=== PATIENT | male | born 1965 | race African-American/Black ===

== ENCOUNTER 2018-07-17 05:56 | Day surgery (SDC) | payer OTHER ==
[2018-07-17 06:36] VITALS: PULSE 80; TEMP 99; BMI 44.0
[2018-07-17 06:50] VITALS: BP 150/80
[2018-07-17] MEDS ORDERED: TRANEXAMIC ACID 1000 MG/10 ML VIAL ONE (07:12)
[2018-07-17] MEDS ORDERED: ONDANSETRON 4 MG/2 ML VIAL ONE (07:12)
[2018-07-17] MEDS ORDERED: VANCOMYCIN 1,000 MG VIAL (RESTRICTED TO ID ONLY) ONE (07:12)
[2018-07-17] MEDS ORDERED: ceFAZolin SODIUM 1 GM VIAL ONE (07:12)
[2018-07-17] MEDS ORDERED: PROPOFOL 20 ML ONE (07:12)
[2018-07-17] MEDS ORDERED: DEXAMETHASONE SOD PHOSPHATE 4 MG/1 ML VIAL ONE (07:12)
[2018-07-17] MEDS ORDERED: SUCCINYLCHOLINE CHLORIDE 200 MG/10 ML VIAL ONE (07:12)
[2018-07-17] MEDS ORDERED: CELECOXIB 200 MG CAPSULE PO ONE (07:21)
[2018-07-17] MEDS ORDERED: WATER IVPB ONE (07:21)
[2018-07-17] MEDS ORDERED: TRANEXAMIC ACID 1000 MG/10 ML VIAL IVPUSH ONE (07:21)
[2018-07-17] MEDS ORDERED: DEXTROSE 5% IVPB ONE (07:21)
[2018-07-17] MEDS ORDERED: CEFAZOLIN 2 GM in DEXTROSE 5%-WATER - 50 ML IVPB ONE (07:21)
[2018-07-17] MEDS ORDERED: VANCOMYCIN IVPB ONE (07:21)
[2018-07-17] MEDS ORDERED: MIDAZOLAM HCL 2 MG/2 ML SINGLE DOSE VIAL ONE ×3 (07:34→09:04)
[2018-07-17] MEDS ORDERED: DEXAMETHASONE SOD PHOSPHATE/PF 10 MG/ML SDV ONE ×2 (07:34→08:17)
[2018-07-17] MEDS ORDERED: BUPIVACAINE HCL/PF (5 MG/ML) 30 ML VIAL IJ ONE (07:34)
[2018-07-17] MEDS ORDERED: HEPARIN NA (PORCINE) 5,000 UNITS/ML 1ML VIAL ONE (07:50)
[2018-07-17] MEDS ORDERED: BENZOIN TINCTURE SWABSTICK TP ONE (07:51)
[2018-07-17] MEDS ORDERED: EPINEPHrine/PF 1 MG/1 ML (1:1,000) AMPULE ONE ×2 (08:18→09:03)
[2018-07-17] MEDS ORDERED: ROPIVACAINE HCL 0.5% 30ML VIAL ONE (08:19)
[2018-07-17] MEDS ORDERED: KETOROLAC TROMETHAMINE 60 MG/2 ML VIAL ONE (09:03)
[2018-07-17] MEDS ORDERED: morphine CARPU-JECT 10 MG/1 ML DISP.SYRIN ONE (09:03)
[2018-07-17] MEDS ORDERED: BUPIVACAINE HCL/PF 2.5 MG/ML - 30 ML VIAL IJ ONE (09:04)
[2018-07-17] MEDS ORDERED: SODIUM CHLORIDE 0.9% P/F 10 ML VIAL IJ ONE (09:04)
[2018-07-17] MEDS ORDERED: KETOROLAC TROMETHAMINE 30 MG/1 ML VIAL ONE (11:09)
[2018-07-17] MEDS ORDERED: KETOROLAC TROMETHAMINE 30 MG/1 ML VIAL IVPUSH ONE (13:07)
== END 2018-07-17 12:00 | disposition home or self-care (01) ==
LOC: FM/S 05:56 → FASUSAT 05:56 → UNDOADMIN 05:56 → EDSTATUS 10:00 → UNDODISIN 12:00 → FASUSAT 12:00
PROVIDERS: ATTEND Orthopaedic Surgery Orthopaedic Surgery of the Spine
PROC: 0SRB0JZ Replacement of Left Hip Joint with Synthetic Substitute, Open Approach (ICD-10-PCS; principal; 2018-07-17)
PROC: 0SPB0JZ Removal of Synthetic Substitute from Left Hip Joint, Open Approach (ICD-10-PCS; 2018-07-17)
DX: T84.091D Other mechanical complication of internal left hip prosthesis, subsequent encounter (principal); Y79.2 Prosthetic and other implants, materials and accessory orthopedic devices associated with adverse incidents; Z53.09 Procedure and treatment not carried out because of other contraindication
CPT/HCPCS: J1644

== ENCOUNTER 2018-12-18 07:17 | Inpatient (IN) | payer OTHER ==
[2018-12-04 13:46] VITALS: BMI 38.0
[2018-12-18] MEDS ORDERED: VANCOMYCIN 2,000 MG in DEXTROSE 5%-WATER - 500 ML IVPB ONE (08:00)
[2018-12-18] MEDS ORDERED: HEPARIN NA (PORCINE) 5,000 UNITS/ML 1ML VIAL ONE (09:57)
[2018-12-18] MEDS ORDERED: CEFAZOLIN 2 GM in DEXTROSE 5%-WATER - 50 ML IVPB ONE (10:00)
[2018-12-18] MEDS ORDERED: TRANEXAMIC ACID 1000 MG/10 ML VIAL IVPUSH ONE (10:00)
[2018-12-18] MEDS ORDERED: EPINEPHrine/PF 1 MG/1 ML (1:1,000) AMPULE ONE (10:08)
[2018-12-18] MEDS ORDERED: MIDAZOLAM HCL 2 MG/2 ML SINGLE DOSE VIAL ONE (10:09)
[2018-12-18] MEDS ORDERED: DEXMEDETOMIDINE HCL 200 MCG/2 ML IVPB ONE (10:15)
[2018-12-18] MEDS ORDERED: VANCOMYCIN 1,000 MG VIAL (RESTRICTED TO ID ONLY) ONE (10:17)
[2018-12-18] MEDS ORDERED: BUPIVACAINE HCL/PF 0.5% (5MG/ML) 10 ML VIAL ONE (10:31)
[2018-12-18] MEDS ORDERED: PROPOFOL 20 ML ONE ×5 (10:32→11:23)
[2018-12-18] MEDS ORDERED: ceFAZolin SODIUM 1 GM VIAL ONE (10:33)
[2018-12-18] MEDS ORDERED: DEXAMETHASONE SOD PHOSPHATE 4 MG/1 ML VIAL ONE (10:33)
[2018-12-18] MEDS ORDERED: TRANEXAMIC ACID 1000 MG/10 ML VIAL ONE (10:33)
[2018-12-18] MEDS ORDERED: ONDANSETRON 4 MG/2 ML VIAL ONE ×3 (10:33→16:47)
[2018-12-18] MEDS ORDERED: SODIUM CHLORIDE 0.9% P/F 10 ML VIAL IJ ONE (10:33)
[2018-12-18] MEDS ORDERED: BENZOIN/ALOE VERA/STORAX/TOLU 58 ML BOTTLE ONE (10:58)
[2018-12-18] MEDS ORDERED: LIDOCAINE HCL/PF 2% SDV 5ML VIAL ONE (11:19)
[2018-12-18] MEDS ORDERED: KETAMINE HCL 200 MG/20 ML VIAL ONE (11:33)
[2018-12-18] MEDS ORDERED: MAGNESIUM SULF 50% (8.12 MEQ/2 ML-1 GM VIAL) ONE (11:34)
[2018-12-18] MEDS ORDERED: ROCURONIUM BROMIDE 50 MG/5 ML VIAL ONE ×3 (11:50→14:15)
[2018-12-18] MEDS ORDERED: NEOSTIGMINE METHYLSULFATE 0.5 MG/ML - 10 ML MDV ONE (15:04)
[2018-12-18] MEDS ORDERED: GLYCOPYRROLATE 0.2 MG/1 ML VIAL ONE (15:04)
[2018-12-18] MEDS ORDERED: KETOROLAC TROMETHAMINE 30 MG/1 ML VIAL ONE (15:14)
[2018-12-18] MEDS ORDERED: DESFLURANE GAS 240 ML BOTTLE IH ONE (15:40)
--- NOTE | 2018-12-18 15:58 | SURG ---
Surgery Bdc Manager Note Bdc Manager: Andrew Marks PA-C Date of Service: 12/18/18 Diagnosis: Failure of left hip hardware Procedure: Revision of left hip hardware, extended trochanteric osteotomy I was present for the entirety of the operative procedure. For further detail, please refer to operative report.
[2018-12-18] MEDS ORDERED: LACTATED RINGERS SOLUTION 1,000 ML IV SCH (16:00)
[2018-12-18] MEDS ORDERED: MAG HYDROX/AL HYDROX/SIMETH 30 ML UNIT-DOSE CUP PO PRN (16:00)
[2018-12-18] MEDS ORDERED: ONDANSETRON 4 MG/2 ML VIAL IVPUSH PRN ×2 (16:00→16:26)
[2018-12-18] MEDS ORDERED: MAGNESIUM HYDROX 2400MG/30ML ORAL SUSPENSION 30 ML CUP PO PRN (16:00)
[2018-12-18] MEDS ORDERED: HYDROmorphone HCL CARPU-JECT 1 MG/1 ML DISP.SYRIN IVPUSH PRN (16:26)
[2018-12-18] MEDS ORDERED: PROMETHAZINE HCL 25 MG/1 ML VIAL IVPUSH PRN (16:26)
[2018-12-18] MEDS ORDERED: oxyCODONE HCL 5 MG TABLET PO PRN (16:27)
[2018-12-18] MEDS ORDERED: ACETAMINOPHEN 325 MG TABLET (FP) PO SCH (16:30)
[2018-12-18] MEDS ORDERED: ACETAMINOPHEN 325 MG TABLET (FP) PO ONE (16:45)
[2018-12-18] MEDS ORDERED: ACETAMINOPHEN 325 MG TABLET (FP) ONE (16:46)
[2018-12-18] MEDS ORDERED: ONDANSETRON 4 MG/2 ML VIAL IVPUSH ONE (16:47)
[2018-12-18 17:06] LABS: MCH 27.9 pg (25.7-33.7); MCHC 33.3 g/dl (32.0-35.9); MEAN CELL VOLUME 83.7 fl (80-96); MEAN PLT VOLUME 8.9 fl (7.5-11.1); PLATELET COUNT 176 K/MM3 (134-434); RDW 13.3 % (11.9-15.9)
[2018-12-18] MEDS ORDERED: PROMETHAZINE HCL 25 MG/1 ML VIAL ONE (17:06)
[2018-12-18] MEDS ORDERED: PROMETHAZINE HCL 25 MG/1 ML VIAL IVPUSH ONE (17:10)
[2018-12-18] MEDS ORDERED: HYDROmorphone HCL 0.5 MG/0.5 ML SYRINGE ONE (17:13)
[2018-12-18] MEDS ORDERED: HYDROmorphone HCL CARPU-JECT 2 MG/1 ML DISP.SYRIN IVPUSH ONE (17:15)
[2018-12-18] MEDS: ACETAMINOPHEN 325 MG TABLET (FP) PO SCH ×2 (17:39→22:43)
[2018-12-18] MEDS: CEFAZOLIN 2 GM/D5W 2 GM/50 ML ML IVPB SCH (17:55)
[2018-12-18] MEDS: oxyCODONE HCL 5 MG TABLET PO PRN ×2 (18:00→22:44)
--- NOTE | 2018-12-18 18:19 | OP ---
Operative Note - Note: Operative Date: 12/18/18 Pre-Operative Diagnosis: Left hip implant failure Operation: Revision L THR Extended Trochanteric Osteotomy Findings: Proximilization of femoral stem with intercalary bone between the stem and spa which had from the SROM stem Implants: 32mm ceramic head and 60mm ployethylene liner Surgeon: Jd Pollard Information Services Assistant: Andrew Marks Anesthesia: General Estimated Blood Loss (mls): 1,500 Drains & Tubes with Location: 10/22 hemovac Blood Volume Replaced (mls): 500 Operative Report Dictated: Yes
[2018-12-18] MEDS ORDERED: HYDROmorphone HCl 2 MG/ML VIAL IVPUSH ONE (18:49)
[2018-12-18] MEDS ORDERED: HYDROmorphone HCL CARPU-JECT 2 MG/1 ML DISP.SYRIN IVPB PRN (19:00)
--- NOTE | 2018-12-18 19:13 | PN ---
Progress Note, Physician Chief Complaint: Pt with right hip implant failure, now s/p Revision Left THR extended trochanteric osteotomy. History of Present Illness: 53 year old M with h/o bilateral slipped capital femoral epyphysis daignosed at age 10, s/p bilateral hip replacements presents to [facility] for Revision L THR Extended Trochanteric Osteotomy. No immediate complications reported. Pt's sole complaint is post-op pain. - Current Medication List Current Medications: Active Medications Acetaminophen (Tylenol -) 650 mg PO Q6H [facility] Stop: 12/21/18 16:59 Last Admin: 12/18/18 17:39 Dose: Not Given Al Hydroxide/Mg Hydroxide (Mylanta Oral Suspension -) 30 ml PO Q4H PRN PRN Reason: DYSPEPSIA Ascorbic Acid (Vitamin C -) 500 mg PO BID [facility] Aspirin (Asa -) 325 mg PO BID [facility] Carvedilol (Coreg -) 25 mg PO DAILY [facility] Fentanyl (Sublimaze Injection -) 75 mcg IVPUSH [id number] PRN PRN Reason: PAIN-PACU ORDER X 4 DOSES ONLY Gabapentin (Neurontin -) 300 mg PO BID [facility] Stop: 12/21/18 21:59 Hydralazine HCl (Apresoline -) 50 mg PO DAILY [facility] Hydrochlorothiazide (Hctz -) 25 mg PO DAILY [facility] Hydromorphone HCl (Dilaudid Injection -) 0.5 mg IVPUSH [id number] PRN PRN Reason: PAIN-PACU ORDER X 4 DOSES ONLY Cefazolin Sodium/Dextrose (Ancef 2 Gm Premixed Ivpb -) 2 gm in 50 mls @ 200 mls /hr IVPB Q8H-IV [facility] Stop: 12/19/18 02:14 Last Admin: 12/18/18 17:55 Dose: 200 mls/hr Lactated Ringer's (Lactated Ringers Solution) 1,000 mls @ 125 mls/hr IV ASDIR [facility] Stop: 12/19/18 06:00 Last Admin: 12/18/18 17:38 Dose: Not Given Magnesium Hydroxide (Milk Of Magnesia -) 30 ml PO PRN PRN PRN Reason: CONSTIPATION Multivitamins/Minerals/Vitamin C (Tab-A-Vit -) 1 tab PO DAILY [facility] Nifedipine (Procardia Xl -) 90 mg PO DAILY [facility] Ondansetron HCl (Zofran Injection) 4 mg IVPUSH Q6H PRN PRN Reason: NAUSEA AND/OR VOMITING Oxycodone HCl (Roxicodone -) 5 mg PO Q3H PRN PRN Reason: PAIN LEVEL 1-5 Oxycodone HCl (Roxicodone -) 10 mg PO Q3H PRN PRN Reason: PAIN LEVEL 6-10 Last Admin: 12/18/18 18:00 Dose: 10 mg Oxycodone HCl (Oxycontin -) 10 mg PO BID [facility] Stop: 12/21/18 16:27 Pantoprazole Sodium (Protonix -) 40 mg PO DAILY [facility] Promethazine HCl (Phenergan Injection -) 12.5 mg IVPUSH Q6H PRN PRN Reason: NAUSEA-FOR RESCUE AFTER 15 MIN Senna/Docusate Sodium (Pericolace -) 1 tablet PO BID [facility] - Objective Vital Signs: Vital Signs Temperature 98.1 F 12/18/18 18:33 Pulse Rate 91 H 12/18/18 18:33 Respiratory Rate 18 12/18/18 18:33 Blood Pressure 112/60 12/18/18 18:33 O2 Sat by Pulse Oximetry (%) 97 12/18/18 18:33 Constitutional: Yes: Well Nourished, Mild Distress Eyes: Yes: Conjunctiva Clear, PERRL HENT: Yes: Atraumatic, Normocephalic Neck: Yes: Supple, Trachea Midline Cardiovascular: Yes: Regular Rate and Rhythm Respiratory: Yes: Regular, CTA Bilaterally Gastrointestinal: Yes: Normal Bowel Sounds, Soft ...Rectal Exam: Yes: Deferred Genitourinary: Yes: WNL Breast(s): Yes: Gynecomastia Musculoskeletal: Yes: Joint Stiffness Extremities: Yes: WNL Edema: No Peripheral Pulses WNL: Yes Peripheral Pulses: Left Radial: 2+, Right Radial: 2+, Left Doralis Pedis: 2+, Right Dorsalis Pedis: 2+ Integumentary: Yes: WNL Wound/Incision: Yes: Clean/Dry, Dressing Dry and Intact (JIMBO drain in situ) Neurological: Yes: Alert, Oriented ...Motor Strength: WNL Psychiatric: Yes: Alert, Oriented Labs: CBC, BMP 12/18/18 16:40 - ....Imaging X-ray: Report Reviewed (Left hip X-ray 03-06-2019 2 View of the left hip reveal a left hip replacement with soft tissue air and nils. ther eis wiring around the proximal left femur. These are typical post-op findings.) Problem List - Problems (1) Status post total replacement of left hip Assessment/Plan: neurontin 300mg BID IV hydration overnight advance diet as tolerated Tylenol PRN fever dilaudid IV PRN severe pain Oxycodone 5mg Q3 mild pain Oxycodone 10mg Q3 moderate pain ASA 325mg BID (bleeding precautions) Ancef 2gm x 2 doses Code(s): Z96.642 - PRESENCE OF LEFT ARTIFICIAL HIP JOINT (2) HTN (hypertension) Assessment/Plan: continue HCTZ 25mg daily, hydral 50mg daily and procardia XL 90mg daily coreg 25mg daily cardiac diet Code(s): I10 - ESSENTIAL (PRIMARY) HYPERTENSION (3) Prophylactic measure Assessment/Plan: fall precautions PT when stable GI PPX: Protonix Bowel regimen: senna/colace continue MVI daily PRN MOM for constipation Code(s): Z29.9 - ENCOUNTER FOR PROPHYLACTIC MEASURES, UNSPECIFIED Impression/Plan Impression/Plan: DISPO: Full code Visit type - Emergency Visit Emergency Visit: No - New Patient This patient is new to me today: Yes Date on this admission: 12/18/18 - Critical Care Critical Care patient: No - Discharge Referral Referred to [facility] Med P.C.: No
[2018-12-18] MEDS: GABAPENTIN 300 MG CAPSULE (FP) PO SCH (21:09)
[2018-12-18] MEDS: SENNOSIDES/DOCUSATE COMBO (SENNA PLUS) TABLET (UD) PO SCH (21:09)
[2018-12-18] MEDS: ASCORBIC ACID 500 MG TABLET (FP) PO SCH (21:10)
[2018-12-18] MEDS: ASPIRIN 325 MG TABLET PO SCH (21:10)
[2018-12-18] MEDS ORDERED: oxyCODONE HCL 10 MG SUSTAINED ACTING TABLET PO SCH (22:00)
[2018-12-19] MEDS: CEFAZOLIN 2 GM/D5W 2 GM/50 ML ML IVPB SCH (01:44)
[2018-12-19] MEDS: KETOROLAC TROMETHAMINE 30 MG/1 ML VIAL IVPUSH SCH ×3 (02:34→16:22)
[2018-12-19] MEDS: oxyCODONE HCL 5 MG TABLET PO PRN ×4 (05:01→19:55)
[2018-12-19] MEDS: ACETAMINOPHEN 325 MG TABLET (FP) PO SCH ×4 (05:02→22:56)
--- NOTE | 2018-12-19 07:39 | PN ---
Physical Exam: SUBJECTIVE: Patient seen and examined at bedside. Appears comfortable, but pain is 9/10. Became dizzy and lightheaded this morning when he stood up. Tolerating PO. OBJECTIVE: Vital Signs Period Temp Pulse Resp BP Sys/Sepulveda Pulse Ox Last 24 Hr 98.1 F-99.4 F 84-107 16-21 112-152/60-90 97-100 GENERAL: The patient is awake, alert, and fully oriented, in no acute distress. LUNGS: Breath sounds equal, clear to auscultation bilaterally, no wheezes, no crackles, no accessory muscle use. HEART: Regular rate and rhythm, S1, S2 without murmur, rub or gallop. ABDOMEN: Soft, nontender, nondistended, normoactive bowel sounds, no guarding, no rebound, no hepatosplenomegaly, no masses. EXTREMITIES: 2+ pulses, warm, well-perfused, no edema. NEUROLOGICAL: Cranial nerves II through XII grossly intact. Normal speech, gait not observed. PSYCH: Normal mood, normal affect. SKIN: Warm, dry, normal turgor, no rashes or lesions noted Laboratory Results - last 24 hr 12/18/18 12/18/18 12/18/18 13:44 13:49 16:40 WBC 18.0 H RBC 4.30 Hgb 12.0 Hct 36.0 MCV 83.7 MCH 27.9 MCHC 33.3 RDW 13.3 Plt Count 176 MPV 8.9 Blood Type O POSITIVE O POSITIVE Antibody Screen Negative Active Medications Generic Name Dose Route Start Last Admin Trade Name Freq PRN Reason Stop Dose Admin Acetaminophen 650 mg 12/18/18 17:00 12/19/18 05:02 Tylenol - PO 12/21/18 16:59 650 mg Q6H ALEX Administration Al Hydroxide/Mg Hydroxide 30 ml 12/18/18 16:00 Mylanta Oral Suspension - PO Q4H PRN DYSPEPSIA Ascorbic Acid 500 mg 12/18/18 22:00 12/18/18 21:10 Vitamin C - PO 500 mg BID ALEX Administration Aspirin 325 mg 12/18/18 22:00 12/18/18 21:10 Asa - PO 325 mg BID A[facility] Administration Carvedilol 25 mg 12/19/18 10:00 Coreg - PO DAILY [facility] Fentanyl 75 mcg 12/18/18 16:25 Sublimaze Injection - IVPUSH [id number] PRN PAIN-PACU ORDER X 4 DOSES ONLY Gabapentin 300 mg 12/18/18 22:00 12/18/18 21:09 Neurontin - PO 12/21/18 21:59 300 mg BID ALEX Administration Hydralazine HCl 50 mg 12/19/18 10:00 Apresoline - PO DAILY [facility] Hydrochlorothiazide 25 mg 12/19/18 10:00 Hctz - PO DAILY [facility] Hydromorphone HCl 0.5 mg 12/18/18 16:26 Dilaudid Injection - IVPUSH [id number] PRN PAIN-PACU ORDER X 4 DOSES ONLY Hydromorphone HCl 2 mg 12/18/18 19:00 12/19/18 01:30 Dilaudid Injection - IVPB 2 mg Q6H PRN Administration PAIN LEVEL 6-10 Ketorolac Tromethamine 30 mg 12/19/18 03:00 12/19/18 02:34 Toradol Injection - IVPUSH 12/19/18 21:01 30 mg Q6H-IV [facility] Administration Ketorolac Tromethamine 30 mg 12/20/18 03:00 Toradol Injection - IVPUSH 12/25/18 02:59 Q6H-IV [facility] Magnesium Hydroxide 30 ml 12/18/18 16:00 Milk Of Magnesia - PO PRN PRN CONSTIPATION Multivitamins/Minerals/Vitamin C 1 tab 12/19/18 10:00 Tab-A-Vit - PO DAILY [facility] Nifedipine 90 mg 12/19/18 10:00 Procardia Xl - PO DAILY [facility] Ondansetron HCl 4 mg 12/18/18 16:26 Zofran Injection IVPUSH Q6H PRN NAUSEA AND/OR VOMITING Oxycodone HCl 5 mg 12/18/18 16:27 Roxicodone - PO Q3H PRN PAIN LEVEL 1-5 Oxycodone HCl 10 mg 12/18/18 16:27 12/19/18 05:01 Roxicodone - PO 10 mg Q3H PRN Administration PAIN LEVEL 6-10 Oxycodone HCl 10 mg 12/18/18 22:00 12/18/18 21:10 Oxycontin - PO 12/21/18 16:27 10 mg BID [facility] Administration Pantoprazole Sodium 40 mg 12/19/18 10:00 Protonix - PO DAILY [facility] Promethazine HCl 12.5 mg 12/18/18 16:26 Phenergan Injection - IVPUSH Q6H PRN NAUSEA-FOR RESCUE AFTER 15 MIN Senna/Docusate Sodium 1 tablet 12/18/18 22:00 12/18/18 21:09 Pericolace - PO 1 tablet BID [facility] Administration ASSESSMENT/PLAN 53 year-old male with a PMH significant for HTN, s/p revision left total hip replacement. s/p revision left total hip replacement --POD #1 --perioperative antibiotics complete --pain management per surgery --ASA 325mg BID --protonix --bowel regimen --incentive spirometry --Hemovac drain, monitor output Hypertension --presently orthostatic hypotension, tachy to 127 on standing --give NS x 1L bolus --repeat orthostatics --continue carvedilol, nifedipine, hydralazine; hold HCTZ Elevated creatinine --pre-op BUN/Cr 14/0.8; today 25/1.4 --likely due to low volume state --hold HCTZ --IV fluids FEN Fluids: NS@100mL/hr Electrolytes: replete as indicated Nutrition: regular diet DVT prophylaxis: OOB, ambulation, SCDs, TEDs, ASA 325mg BID Physical therapy Dispo: continues to require inpatient care. Full code. Visit type - Emergency Visit Emergency Visit: No - New Patient This patient is new to me today: Yes Date on this admission: 12/19/18 - Critical Care Critical Care patient: No
--- NOTE | 2018-12-19 07:46 | PN ---
Progress Note (short form) - Note Progress Note: POD 1, s/p Revision L THR Extended Trochanteric Osteotomy Pt seen and examined this morning. Reports continued pain with current pain regimen. Stood with assistance from RN this morning, however became dizzy and lightheaded, pt was placed back in bed. Tolerating PO. Denies cp/sob, n/v/d. Vital Signs Temp 98.8 F 12/19/18 06:41 Pulse 100 H 12/19/18 06:41 Resp 18 12/19/18 06:41 BP 152/72 12/19/18 06:41 Pulse Ox 98 12/19/18 06:41 Intake & Output 12/18/18 12/18/18 12/19/18 11:59 23:59 11:59 Intake Total 2800 1350 1650 Output Total 2290 650 Balance 2800 -940 1000 Weight 288 lb Intake: IV 2800 200 1250 Lactated Ringers Solution 1250 1,000 ml @ 125 mls/hr IV ASDIR MENDOZA Rx#: [id number] IVPB 50 Oral 400 350 Blood Product 750 Output: Drainage 90 50 Left Hip 90 50 Urine 200 600 Pineda 0 600 Estimated Blood Loss 1999 Other: Voiding Method Indwelling Catheter Indwelling Catheter Bowel Movement No Height 6 ft 1 in Body Mass Index (BMI) 38.0 Weight Measurement Method Standing Scale Gen: awake, alert, nad, sitting in bed Resp: unlabored on RA Hip: dressing intact with minimal serosanguinous drainage, HV in place with minimal serosanguinous drainage in reservoir LE: 5/5 b/l df/pf, silt, palpable dp/pt b/l A/P: 53 y/o M w/ PMHX OA, htn, morbid pobesity, now POD 1, s/p Revision L THR Extended Trochanteric Osteotomy. Afebrile, mildly tachycardic to low 100s (?pain), BP systolic in 1teens Labs pending HV output 50ml serosanguinous drainage overnight -F/U AM labs -Pain control: Oxycontin 10mg increased to TID, continue Oxycodone 5/10mg q3hr prn, Tylenol 650mg q6hrs mendoza, Gabapentin 300mg bid, Dilaudid 2mg q6h BTP -DVT prophylaxis with b/l scds, ASA 325bid -Incentive Spirometry. -PT, OOB. -WBAT LLE -Posterior L hip precautions. -f/u drain output. -f/u am labs. -f/u post-op TOV. -Hip abduction pillow -Care per medical hospitalist team
[2018-12-19] MEDS: oxyCODONE HCL 10 MG SUSTAINED ACTING TABLET PO SCH ×3 (08:13→21:30)
[2018-12-19 08:40] LABS: HEMATOCRIT 30.1 % (35.4-49); HEMOGLOBIN 9.8 GM/dl (11.7-16.9); MCH 27.4 pg (25.7-33.7); MCHC 32.5 g/dl (32.0-35.9); MEAN CELL VOLUME 84.4 fl (80-96); MEAN PLT VOLUME 9.3 fl (7.5-11.1); PLATELET COUNT 154 K/MM3 (134-434); RBC 3.57 M/mm3 (4.00-5.60); RDW 13.5 % (11.9-15.9); WHITE BLOOD COUNT 17.4 K/mm3 (4.0-10.8)
[2018-12-19 08:42] LABS: ALBUMIN 3.1 g/dl (3.4-5.0); ALK PHOS 22 U/L (45-117); ANION GAP 10 MMOL/L (8-16); BILIRUBIN,TOTAL 0.9 mg/dl (0.2-1); BLOOD UREA NITROGEN 25 mg/dl (7-18); CALCIUM 8.1 mg/dl (8.5-10); CHLORIDE 96 mmol/L (98-107); CO2 27 mmol/L (21-32); CREATININE 1.4 mg/dl (0.55-1.3); GLUCOSE,RANDOM 140 mg/dl (74-106); PHOSPHOROUS 4.1 mg/dl (2.5-4.9); POTASSIUM 3.6 mmol/L (3.5-5.1); SGOT/AST 23 U/L (15-37); SGPT/ALT 16 U/L (13-61); SODIUM 133 mmol/L (136-145); TOT PROT 5.7 g/dl (6.4-8.2)
[2018-12-19] MEDS ORDERED: HYDROCHLOROTHIAZIDE 25 MG TABLET (FP) PO SCH (10:00)
[2018-12-19] MEDS: ASPIRIN 325 MG TABLET PO SCH ×2 (10:22→21:29)
[2018-12-19] MEDS: CARVEDILOL 25 MG TABLET (FP) PO SCH (10:22)
[2018-12-19] MEDS: hydrALAZINE HCL 50 MG TABLET (FP) PO SCH (10:22)
[2018-12-19] MEDS: PANTOPRAZOLE 40 MG TABLET (FP) PO SCH (10:23)
[2018-12-19] MEDS: GABAPENTIN 300 MG CAPSULE (FP) PO SCH ×2 (10:23→21:30)
[2018-12-19] MEDS: SENNOSIDES/DOCUSATE COMBO (SENNA PLUS) TABLET (UD) PO SCH ×2 (10:23→21:30)
[2018-12-19] MEDS: NIFEdipine E.R. 90 MG TABLET (FP) PO SCH (10:23)
[2018-12-19] MEDS: MULTIVITAMINS (DAILY MVI) TABLET (FP) PO SCH (10:23)
[2018-12-19] MEDS: ASCORBIC ACID 500 MG TABLET (FP) PO SCH ×2 (10:24→21:30)
--- NOTE | 2018-12-19 11:09 | OP ---
DATE OF OPERATION: 12/18/2018 SURGEON: Jd Pollard M.D. STEEL [employer]AR OPERATOR: Tony Johnson, ([facility] PREOPERATIVE DIAGNOSIS: Failed implant left femur, left total hip arthroplasty. POSTOPERATIVE DIAGNOSIS: Failed implant left femur, left total hip arthroplasty. OPERATION PERFORMED: 1. Left revision total hip arthroplasty. 2. Extended trochanteric osteotomy. 3. Complex wound closure, 60 cm. OVERALL COMMENT: Extremely difficult operation. ANESTHESIA: General anesthesia. ANTIBIOTICS GIVEN: 3 g Kefzol, 1 g vancomycin preoperative. Patient's weight is 290 pounds, BMI is 39. DESCRIPTION OF PROCEDURE: With the patient in supine position, left lower extremity was prepped, draped in the routine manner with Betadine scrub solution, wiped off with alcohol, DuraPrep applied. The original wound was excised, completing a complete scar excision that extended from the line going vertically down from the anterior superior iliac spine right down to the distal 1/3 of the femur. The fascial planes were identified and opened appropriately. Charnley retractors were placed in the subfascial plane. The exposure here was difficult, because of thickness and massive structures which we encountered. An extended trochanteric osteotomy measuring about an inch and a half below the distal to the trochanteric ridge was performed; with great difficulty, the trochanter in 1 large piece was dissected off the proximal aspect of the femoral bone bed and lifted up out of harm's way. Two Charnley pins driven into the ileum to hold the hip abductor mechanism out of harm's way. Working around the stem of the femur, which is now visibly apparent, it was noted that the spur had remained in standard composition but the entire femoral component had proximalized itself, massive thick bone had intervened between the actual calcar and the actual base of the left femoral component, giving a thick bony block as if bone had grown in between the 2 components, and the femoral component migrated proximally, yet an attempt to mobilize the femoral stent was impossible, this was solidly seated . The spur was loosened completely to migrate itself up to meet back in position the femoral neck, this measured approximately 1 cm. Once again the spur was spun out of harm's way and with extensive attempts at trying to deliver the femoral component out, the only way this would have been possible is splitting the femur, and I elected not to do this, as this was slowly inserted, we are reseating a brand new implant which would not have changed any biomechanical advantage at all. The acetabulum was exposed with anterior posterior inferior retractors as well as with peripheral junctional bed was freed around the cup. The polyethylene was removed. The cup was assessed itself, found to be completely and solidly inserted and uncomplicated. At that point, I elected to leave that well enough alone and exchange the cup no great achievement. Exposure itself proved to be extremely difficult. A new polyethylene liner was inserted, this measured 60 mm size diameter cup, and 30-mm articulation. I trialed the components again with trial 32 mm head fastened to the trunnion of the Eschelon stem. This was found to be very acceptable with completely within normal range of movement. At that point, we elected to provide the appropriate definitive prosthesis, which was then inserted exactly as measured above. The extended trochanteric osteotomy was then positioned back in place, and a block of bone as an allograft bone was placed between the calcar and the actual spur to support the spur proximally. The cabling of the extended trochanteric osteotomies was with 5 cables including capturing the block of bone proximally. All fixed solidly into position, no complications. A complete extensive debridement of soft tissue was then performed, hemostasis was achieved as best we could, and Cell Saver blood was utilized and we gave back approximately 600 mL of Cell Saver blood. Blood loss was about 1500 mL. The wound closure was a complex wound closure as follows: Deep muscle 1 Vicryl, fascia 1 Vicryl, subcutaneous 1 and 2-0 Vicryl in 2 layers, skin nils. Drainage one-eighth inch x1. Overall comment: Extremely difficult operation not only physically and technically difficult to perform because of this man's massive girth and musculature, but also more in terms of the challenging and unusual findings intraoperative as above, and the decision making in order to provide him a hip with as best function as possible. MD JULIO CESAR Shoemaker/[id number]
[2018-12-19] MEDS ORDERED: SODIUM CHLORIDE 1,000 ML IV STA (11:26)
[2018-12-19 16:35] LABS: HEMATOCRIT 25.9 % (35.4-49); HEMOGLOBIN 8.5 GM/dl (11.7-16.9); MCH 27.4 pg (25.7-33.7); MCHC 32.7 g/dl (32.0-35.9); MEAN CELL VOLUME 83.8 fl (80-96); MEAN PLT VOLUME 9.3 fl (7.5-11.1); PLATELET COUNT 143 K/MM3 (134-434); RBC 3.09 M/mm3 (4.00-5.60); RDW 13.2 % (11.9-15.9); WHITE BLOOD COUNT 15.3 K/mm3 (4.0-10.8)
[2018-12-20] MEDS: oxyCODONE HCL 5 MG TABLET PO PRN ×4 (00:15→11:20)
[2018-12-20] MEDS ORDERED: KETOROLAC TROMETHAMINE 30 MG/1 ML VIAL IVPUSH SCH (03:00)
[2018-12-20] MEDS: ACETAMINOPHEN 325 MG TABLET (FP) PO SCH ×2 (06:35→11:19)
[2018-12-20] MEDS: oxyCODONE HCL 10 MG SUSTAINED ACTING TABLET PO SCH (06:36)
[2018-12-20 06:48] VITALS: BP 138/59; PULSE 96; TEMP 99
[2018-12-20 07:45] LABS: BASO % 0.5 % (0-2.0); EOS % 0.2 % (0-4.5); HEMATOCRIT 27.1 % (35.4-49); LYMPH % 27.6 % (8-40); MCH 27.8 pg (25.7-33.7); MCHC 33.3 g/dl (32.0-35.9); MEAN CELL VOLUME 83.5 fl (80-96); MEAN PLT VOLUME 9.1 fl (7.5-11.1); MONO % 9.7 % (3.8-10.2); PLATELET COUNT 128 K/MM3 (134-434); RBC 3.25 M/mm3 (4.00-5.60); RDW 13.3 % (11.9-15.9); WHITE BLOOD COUNT 13.3 K/mm3 (4.0-10.8)
[2018-12-20 07:51] LABS: ANION GAP 7 MMOL/L (8-16); BLOOD UREA NITROGEN 14 mg/dl (7-18); CALCIUM 8.1 mg/dl (8.5-10); CHLORIDE 98 mmol/L (98-107); CO2 30 mmol/L (21-32); CREATININE 0.8 mg/dl (0.55-1.3); GLUCOSE,RANDOM 120 mg/dl (74-106); MAGNESIUM 2.2 mg/dL (1.8-2.4); POTASSIUM 3.1 mmol/L (3.5-5.1); SODIUM 135 mmol/L (136-145)
[2018-12-20] MEDS ORDERED: POTASSIUM CHLORIDE TABS 20 MEQ TABLET.ER (FP) PO SCH (08:15)
--- NOTE | 2018-12-20 08:38 | DS ---
Physical Exam: SUBJECTIVE: Patient seen and examined. POD #2 s/p Revision L THR Extended Trochanteric Osteotomy. Sitting in chair at bedside. C/o Incisional tenderness. Adequate pain control with meds ordered. He states although he has pain he is able to differentiate it from the pain he was having prior too surgery. Describes pain prior too surgery as "deep, near the bone" (anterolateral thigh) . S/p surgery and feels like it has subsided tremendously. He continues to get oob and ambulate the hallways with walker assist. Per notes, he received 2u PRBC last night secondary to drop in H/H causing him to become symptomatic. S/p PRBC felt better. H/H stable at this time. Denies n/v/f/c, CP, palpitations, SOB or CHRISTINE. OBJECTIVE: Last Vital Signs Temp Pulse Resp BP Pulse Ox 99.0 F 96 H 18 138/59 L 97 03/08/19 06:47 12/20/18 06:47 12/20/18 08:27 12/20/18 06:47 12/20/18 08:27 PE Gen: awake, alert, nad, sitting in bed Resp: unlabored on RA Hip: Left hip dressing intact. Drain w/ 80mL recorded LE: Right unremarkable. LLE 5/5 b/l dorsi/plantar flexion, palpable dp/pt b/l. well-perfused LABS CBC, BMP 03/08/19 07:31 03 07:31 HOSPITAL COURSE: Date of Admission:0306/ Date of Discharge: 12/20/18 53 yo male well known to Dr. Jd Pollard as he was s/p Left JULIAN 18 years ago. Admitted to [facility] s/p Revision L THR w/ Extended Trochanteric Osteotomy secondary to hardware failure. Candy-operative IV ABX were administered. DVT prophylaxis was achieved with SCDs and early ambulation. Narcotic and non-narcotic pain management control was achieved with an oral and IV approach. POD #2, the surgical drain was removed fully intact and without incident. The patient ambulated with Physical Therapy and no services were recommended upon discharge. Narcotic scripts and or muscle relaxants were checked with [facility] SERVICE MANAGER prior to escribe. The discharge instructions and an oral pain management plan were reviewed with the patient. All questions answered. Above plan discussed with Dr. Pollard and agreed. Minutes to complete discharge: 35 Visit type - Case Type Case Type: Scheduled
[2018-12-20] MEDS: PANTOPRAZOLE 40 MG TABLET (FP) PO SCH (09:50)
[2018-12-20] MEDS: GABAPENTIN 300 MG CAPSULE (FP) PO SCH (09:50)
[2018-12-20] MEDS: CARVEDILOL 25 MG TABLET (FP) PO SCH (09:50)
[2018-12-20] MEDS: MULTIVITAMINS (DAILY MVI) TABLET (FP) PO SCH (09:50)
[2018-12-20] MEDS: ASCORBIC ACID 500 MG TABLET (FP) PO SCH (09:50)
[2018-12-20] MEDS: ASPIRIN 325 MG TABLET PO SCH (09:50)
[2018-12-20] MEDS: hydrALAZINE HCL 50 MG TABLET (FP) PO SCH (09:50)
[2018-12-20] MEDS: NIFEdipine E.R. 90 MG TABLET (FP) PO SCH (09:50)
[2018-12-20] MEDS: SENNOSIDES/DOCUSATE COMBO (SENNA PLUS) TABLET (UD) PO SCH (09:50)
--- NOTE | 2018-12-20 17:17 | PATH ---
Surgical Pathology Report Patient Name: ROSMERY QUIÑONES Med. Rec. #: [id number] /Age/Gender: 1965 (Age: 53) / M Account: [id number] Location: [facility] MED-SURG Taken: 12/18/2018 Received: 12/18/2018 Reported: 12/20/2018 Physicians: Jd Pollard M.D. Specimen(s) Received HARDWARE LEFT HIP Clinical History Mechanical complication left hip Final Diagnosis HEAD, LEFT, HARDWARE, REVISION OF TOTAL HIP REPLACEMENT: SURGICAL HARDWARE. MACROSCOPIC DIAGNOSIS. Electronically Signed Anabela Monk M.D. Gross Description Received fresh labeled "hardware left hip," is a 2.5 cm in diameter metallic portion of hardware as well as a 5 cm in diameter white plastic portion of hardware, consisting with portions of a hip prosthesis. No soft tissue is present. No sections are submitted, gross only. /12/19/2018 saudi12/19/2018
--- NOTE | 2018-12-23 16:19 | PN ---
Progress Note (short form) - Note Progress Note: 12/19/18 POD#1 Status Revision THR via extended trochanteric osteotomy Vitals stable Feels light headed intermittent Pale Vitals Stable Hyperdynamic circulation as pulse readily palpable through Brachioradialis muscle CVS Stable RESP Clear ABD Soft Neuro Fully intact MSkeletal wound dry Abd pillow in situ Hemovac as per chart ASSESS Doing well PLAN Due to extense of surgery and intraop blood loss combined with clinical sighns of a hyperdynamic circulation and dropping HT for 2 units of blood DVT Prohylaxis Antibiotics for 24 hrs PT Hip precautions Mobilize FWBAT D/C planning
== END 2018-12-20 12:30 | disposition home health service (06) | DRG 467 ==
LOC: FM/S 07:17
PROVIDERS: ADMIT Orthopaedic Surgery Orthopaedic Surgery of the Spine; ATTEND Orthopaedic Surgery Orthopaedic Surgery of the Spine
PROC: 0SRB04Z Replacement of Left Hip Joint with Ceramic on Polyethylene Synthetic Substitute, Open Approach (ICD-10-PCS; 2018-12-18)
PROC: 0SPB0JZ Removal of Synthetic Substitute from Left Hip Joint, Open Approach (ICD-10-PCS; principal; 2018-12-18 12:01)
PROC: 30233N1 Transfusion of Nonautologous Red Blood Cells into Peripheral Vein, Percutaneous Approach (ICD-10-PCS; 2018-12-19)
DX: T84.091A Other mechanical complication of internal left hip prosthesis, initial encounter (principal); D62 Acute posthemorrhagic anemia; Y83.8 Other surgical procedures as the cause of abnormal reaction of the patient, or of later complication, without mention of misadventure at the time of the procedure; I10 Essential (primary) hypertension; Z96.643 Presence of artificial hip joint, bilateral; I95.1 Orthostatic hypotension; E66.01 Morbid (severe) obesity due to excess calories; Z68.38 Body mass index [BMI] 38.0-38.9, adult
CPT/HCPCS: 36415; 36430; 71045-TC-FY; 73502-TC-LT-FY; 80048; 80053; 83735; 84100; 85025; 85027; 86850; 86900; 86901; 86922; 88300-TC; 94760; 97116-GP; 97163-GP; J1644; J7030; P9038; P9058

== ENCOUNTER 2022-09-20 06:07 | Inpatient (IN) | payer OTHER ==
[2022-09-11 16:02] VITALS: BMI 38.2
[2022-09-20] MEDS ORDERED: PROPOFOL 120 ML ONE (07:16)
[2022-09-20] MEDS ORDERED: VANCOMYCIN 1,000 MG VIAL (RESTRICTED TO ID ONLY) ONE (07:20)
[2022-09-20] MEDS ORDERED: TRANEXAMIC ACID 1000 MG/10 ML VIAL ONE (07:20)
[2022-09-20] MEDS ORDERED: ceFAZolin SODIUM 1 GM VIAL ONE ×5 (07:20→14:14)
[2022-09-20] MEDS ORDERED: MIDAZOLAM HCL 2 MG/2 ML SINGLE DOSE VIAL ONE ×3 (07:21→14:06)
[2022-09-20] MEDS ORDERED: KETAMINE HCL 200 MG/20 ML VIAL ONE (07:52)
[2022-09-20] MEDS ORDERED: DEXAMETHASONE SOD PHOSPHATE 10 MG/1 ML VIAL ONE (07:54)
[2022-09-20] MEDS ORDERED: BUPIVACAINE HCL/PF 0.5% (5 MG/ML) 30 ML VIAL IJ ONE (07:54)
[2022-09-20] MEDS ORDERED: BUPIVACAINE HCL/PF 0.5% (5MG/ML) 10 ML VIAL ONE (07:55)
[2022-09-20] MEDS ORDERED: ACETAMINOPHEN INJECTION 100 ML IVPB ONE (07:55)
[2022-09-20] MEDS ORDERED: BUPIVACAINE LIPOSOME/PF (EXPAREL) 266 MG/20 ML VIAL ONE (07:55)
[2022-09-20] MEDS ORDERED: KETOROLAC TROMETHAMINE 30 MG/1 ML VIAL ONE (08:29)
[2022-09-20] MEDS ORDERED: oxyCODONE HCL 5 MG TABLET PO PRN ×2 (08:34)
[2022-09-20] MEDS ORDERED: ONDANSETRON 4 MG/2 ML VIAL IVPUSH PRN ×2 (08:34→14:21)
[2022-09-20] MEDS ORDERED: KETOROLAC TROMETHAMINE 30 MG/1 ML VIAL IM ONE (08:36)
[2022-09-20] MEDS ORDERED: SODIUM CHLORIDE 0.9% P/F 10 ML VIAL IJ ONE (11:30)
[2022-09-20] MEDS ORDERED: THROMBIN (BOVINE) 5,000 UNIT VIAL TP ONE (11:30)
[2022-09-20] MEDS ORDERED: PROPOFOL 20 ML ONE ×4 (11:36→13:08)
[2022-09-20] MEDS ORDERED: PROPOFOL 40 ML ONE (12:03)
[2022-09-20] MEDS ORDERED: PROPOFOL 100 ML ONE (12:48)
[2022-09-20] MEDS ORDERED: SUCCINYLCHOLINE CHLORIDE 200 MG/10 ML SYRINGE ONE (12:57)
[2022-09-20] MEDS ORDERED: GLYCOPYRROLATE 0.2 MG/1 ML VIAL ONE (13:13)
[2022-09-20] MEDS ORDERED: KETAMINE HCL 500 MG/10 ML VIAL ONE (13:46)
[2022-09-20] MEDS ORDERED: HYDROmorphone HCL/PF 1 MG/ML VIAL ONE ×2 (14:16→14:22)
[2022-09-20] MEDS ORDERED: MAGNESIUM HYDROX 2400MG/30ML ORAL SUSPENSION 30 ML CUP PO PRN (14:21)
[2022-09-20] MEDS ORDERED: MAG HYDROX/AL HYDROX/SIMETH 30 ML UNIT-DOSE CUP PO PRN (14:21)
[2022-09-20] MEDS ORDERED: LACTATED RINGERS SOLUTION 1,000 ML IV SCH (14:30)
[2022-09-20] MEDS: HYDROmorphone HCl 2 MG/ML VIAL ONE ×2 (14:44→14:54)
[2022-09-20] MEDS: HYDROmorphone HCl 2 MG/ML VIAL IVPUSH ONE ×3 (15:04→18:26)
[2022-09-20] MEDS: HYDROmorphone *PCA* 10MG/50ML DISP.SYRIN PCA SCH ×2 (15:23→18:27)
[2022-09-20] MEDS: LACTATED RINGERS SOLUTION 1,000 ML IV SCH (17:54)
[2022-09-20] MEDS: CEFAZOLIN 3 GM in DEXTROSE 5%-WATER - 100 ML IVPB SCH ×2 (18:23→21:20)
[2022-09-20] MEDS: SENNOSIDES/DOCUSATE COMBO (SENNA PLUS) TABLET (UD) PO SCH (21:20)
[2022-09-20] MEDS: ASPIRIN COATED 81 MG TABLET.EC PO SCH (21:20)
[2022-09-20] MEDS: CELECOXIB 200 MG CAPSULE PO SCH (21:20)
[2022-09-21] MEDS: CEFAZOLIN 3 GM in DEXTROSE 5%-WATER - 100 ML IVPB SCH (03:25)
[2022-09-21 08:18] LABS: HEMATOCRIT 32.3 % (35.4-49); HEMOGLOBIN 10.4 G/dL (11.7-16.9); MCH 26.5 pg (25.7-33.7); MCHC 32.1 g/dl (32.0-35.9); MEAN CELL VOLUME 82.6 fl (80-96); MEAN PLT VOLUME 8.1 fl (7.5-11.1); RBC 3.91 10^6/uL (4.00-5.60); RDW 15.1 % (11.9-15.9)
[2022-09-21 08:22] LABS: CALCIUM 8.6 mg/dl (8.5-10); CREATININE 0.6 mg/dl (0.55-1.3)
[2022-09-21] MEDS ORDERED: oxyCODONE HCL 5 MG TABLET PO PRN (08:48)
[2022-09-21] MEDS: LACTATED RINGERS SOLUTION 1,000 ML IV SCH (09:43)
[2022-09-21] MEDS: oxyCODONE HCL 5 MG TABLET PO PRN ×4 (09:50→22:18)
[2022-09-21] MEDS: ASPIRIN COATED 81 MG TABLET.EC PO SCH ×2 (09:53→22:20)
[2022-09-21] MEDS: SENNOSIDES/DOCUSATE COMBO (SENNA PLUS) TABLET (UD) PO SCH ×2 (09:53→22:20)
[2022-09-21] MEDS: HYDROCHLOROTHIAZIDE 25 MG TABLET (FP) PO SCH (09:54)
[2022-09-21] MEDS: NIFEdipine E.R. 90 MG TABLET PO SCH (09:55)
[2022-09-21] MEDS: CELECOXIB 200 MG CAPSULE PO SCH ×2 (09:56→22:20)
[2022-09-21] MEDS: PANTOPRAZOLE 40 MG TABLET PO SCH (09:57)
[2022-09-21] MEDS ORDERED: hydrALAZINE HCL 50 MG TABLET (FP) PO ONE (10:00)
[2022-09-21] MEDS ORDERED: hydrALAZINE HCL 50 MG TABLET (FP) PO SCH (10:00)
[2022-09-21] MEDS ORDERED: CARVEDILOL 25 MG TABLET (FP) PO ONE (10:00)
[2022-09-21] MEDS: ACETAMINOPHEN 325 MG TABLET (FP) PO PRN (17:37)
[2022-09-21] MEDS: cloNIDine HCL 0.1 MG TABLET PO SCH (22:19)
[2022-09-21] MEDS: SPIRONOLACTONE 25 MG TABLET PO SCH (22:19)
[2022-09-22] MEDS: oxyCODONE HCL 5 MG TABLET PO PRN ×5 (03:40→22:28)
[2022-09-22 08:30] LABS: HEMATOCRIT 32.4 % (35.4-49); HEMOGLOBIN 10.6 G/dL (11.7-16.9); MCHC 32.8 g/dl (32.0-35.9); MEAN CELL VOLUME 82.3 fl (80-96); MEAN PLT VOLUME 8.2 fl (7.5-11.1); PLATELET COUNT 231.1 10^3/uL (134-434); RBC 3.94 10^6/uL (4.00-5.60); RDW 15.2 % (11.9-15.9); WHITE BLOOD COUNT 13.6 10^3/uL (4.0-10.8)
[2022-09-22] MEDS: LACTATED RINGERS SOLUTION 1,000 ML IV SCH (09:33)
[2022-09-22] MEDS: ASPIRIN COATED 81 MG TABLET.EC PO SCH ×2 (09:37→21:22)
[2022-09-22] MEDS: CELECOXIB 200 MG CAPSULE PO SCH ×2 (09:37→21:22)
[2022-09-22] MEDS: CARVEDILOL 25 MG TABLET (FP) PO SCH ×2 (09:37→21:23)
[2022-09-22] MEDS: VALSARTAN 160 MG TABLET PO SCH (09:38)
[2022-09-22] MEDS: NIFEdipine E.R. 90 MG TABLET PO SCH (09:38)
[2022-09-22] MEDS: PANTOPRAZOLE 40 MG TABLET PO SCH (09:38)
[2022-09-22] MEDS: SPIRONOLACTONE 25 MG TABLET PO SCH ×2 (09:39→21:22)
[2022-09-22] MEDS: cloNIDine HCL 0.1 MG TABLET PO SCH ×2 (09:39→21:23)
[2022-09-22] MEDS: HYDROCHLOROTHIAZIDE 25 MG TABLET (FP) PO SCH (09:39)
[2022-09-22] MEDS: SENNOSIDES/DOCUSATE COMBO (SENNA PLUS) TABLET (UD) PO SCH ×2 (09:41→21:23)
[2022-09-22] MEDS: ACETAMINOPHEN 325 MG TABLET (FP) PO PRN (11:58)
[2022-09-22] MEDS ORDERED: HYDROmorphone HCl 2 MG/ML VIAL IVPB PRN (12:32)
[2022-09-23 02:39] VITALS: RESP 18
[2022-09-23] MEDS: oxyCODONE HCL 5 MG TABLET PO PRN ×2 (04:10→08:11)
[2022-09-23 06:43] VITALS: TEMP 98.7
[2022-09-23] MEDS: ASPIRIN COATED 81 MG TABLET.EC PO SCH (10:00)
[2022-09-23] MEDS: PANTOPRAZOLE 40 MG TABLET PO SCH (10:00)
[2022-09-23] MEDS: NIFEdipine E.R. 90 MG TABLET PO SCH (10:02)
[2022-09-23] MEDS: HYDROCHLOROTHIAZIDE 25 MG TABLET (FP) PO SCH (10:02)
[2022-09-23] MEDS: CELECOXIB 200 MG CAPSULE PO SCH (10:03)
[2022-09-23] MEDS: VALSARTAN 160 MG TABLET PO SCH (10:03)
[2022-09-23] MEDS: SPIRONOLACTONE 25 MG TABLET PO SCH (10:03)
[2022-09-23] MEDS: CARVEDILOL 25 MG TABLET (FP) PO SCH (10:03)
[2022-09-23] MEDS: cloNIDine HCL 0.1 MG TABLET PO SCH (10:03)
[2022-09-23] MEDS: SENNOSIDES/DOCUSATE COMBO (SENNA PLUS) TABLET (UD) PO SCH (10:04)
[2022-09-23 11:31] VITALS: BP 115/54; PULSE 68
== END 2022-09-23 11:31 | disposition home or self-care (01) | DRG 482 ==
LOC: FM/S 06:07 → EDSTATUS 13:00 → FM/S 16:07
PROVIDERS: ADMIT Orthopaedic Surgery Orthopaedic Surgery of the Spine; ATTEND Orthopaedic Surgery Orthopaedic Surgery of the Spine
PROC: 07DR3ZZ Extraction of Iliac Bone Marrow, Percutaneous Approach (ICD-10-PCS; 2022-09-20)
PROC: 0QS704Z Reposition Left Upper Femur with Internal Fixation Device, Open Approach (ICD-10-PCS; principal; 2022-09-20 10:46)
DX: S72.112A Displaced fracture of greater trochanter of left femur, initial encounter for closed fracture (principal); X58.XXXA Exposure to other specified factors, initial encounter; Y93.9 Activity, unspecified; Y92.89 Other specified places as the place of occurrence of the external cause; Y99.9 Unspecified external cause status
CPT/HCPCS: 36415; 73502-TC-LT-FY; 80048; 85027; 86850; 86900; 86901; 88300-TC; 88304-TC; 94760; 97010-GP; 97116-GP; 97163-GP; C1713; C9803-CS; J1100; U0003; U0005

== ENCOUNTER 2023-03-21 06:02 | Inpatient (IN) | payer OTHER ==
[2023-03-19 15:47] VITALS: BMI 35.6
[2023-03-21] MEDS ORDERED: BUPIVACAINE HCL/PF 0.5% (5MG/ML) 10 ML VIAL ONE (07:51)
[2023-03-21] MEDS ORDERED: BUPIVACAINE HCL/PF 2.5 MG/ML - 30 ML VIAL IJ ONE (07:51)
[2023-03-21] MEDS ORDERED: ACETAMINOPHEN INJECTION 100 ML IVPB ONE (07:52)
[2023-03-21] MEDS ORDERED: MIDAZOLAM HCL 2 MG/2 ML SINGLE DOSE VIAL ONE ×6 (07:54→11:01)
[2023-03-21] MEDS ORDERED: oxyCODONE HCL 5 MG TABLET PO PRN (08:35)
[2023-03-21] MEDS ORDERED: ONDANSETRON 4 MG/2 ML VIAL IVPUSH PRN ×2 (08:35→11:37)
[2023-03-21] MEDS ORDERED: PROPOFOL 20 ML ONE ×4 (09:06→10:17)
[2023-03-21] MEDS ORDERED: ceFAZolin SODIUM 1 GM VIAL ONE (09:59)
[2023-03-21] MEDS ORDERED: VANCOMYCIN 1,000 MG VIAL (RESTRICTED TO ID ONLY) ONE (09:59)
[2023-03-21] MEDS ORDERED: TRANEXAMIC ACID 1000 MG/10 ML VIAL ONE (09:59)
[2023-03-21] MEDS ORDERED: HYDROmorphone HCL/PF 1 MG/ML VIAL ONE ×2 (11:31→12:18)
[2023-03-21] MEDS: HYDROmorphone HCl 2 MG/ML VIAL IVPB PRN ×4 (11:33→15:15)
[2023-03-21] MEDS ORDERED: HYDROmorphone HCl 2 MG/ML VIAL IVPUSH PRN (11:34)
[2023-03-21] MEDS ORDERED: MAG HYDROX/AL HYDROX/SIMETH 30 ML UNIT-DOSE CUP PO PRN (11:37)
[2023-03-21] MEDS ORDERED: MAGNESIUM HYDROX 2400MG/30ML ORAL SUSPENSION 30 ML CUP PO PRN (11:37)
[2023-03-21] MEDS ORDERED: LACTATED RINGERS SOLUTION 1,000 ML IV SCH (11:45)
[2023-03-21] MEDS: KETOROLAC TROMETHAMINE 30 MG/1 ML VIAL IVPUSH PRN ×2 (11:47→20:07)
[2023-03-21] MEDS ORDERED: PATIENT'S OWN MEDICATION (NON-FORMULARY) (Oxycodone Hcl [Oxycodone Hcl] 10 MG Tablet) PO SCH (14:00)
[2023-03-21] MEDS: LACTATED RINGERS SOLUTION 1,000 ML IV SCH (14:36)
[2023-03-21] MEDS: CEFAZOLIN 3 GM in DEXTROSE 5%-WATER - 100 ML IVPB SCH ×2 (15:14→21:09)
[2023-03-21 19:29] VITALS: RESP 18
[2023-03-21] MEDS ORDERED: DEXTROSE 5%-WATER - 100 ML IVPB ONE (21:05)
[2023-03-21] MEDS: GABAPENTIN 300 MG CAPSULE PO SCH (21:08)
[2023-03-21] MEDS: CELECOXIB 200 MG CAPSULE PO SCH (21:09)
[2023-03-21] MEDS: SENNOSIDES/DOCUSATE COMBO (SENNA PLUS) TABLET (UD) PO SCH (21:09)
[2023-03-21] MEDS: CARVEDILOL 25 MG TABLET (FP) PO SCH (21:09)
[2023-03-21] MEDS ORDERED: ASPIRIN 325 MG TABLET PO SCH (22:00)
[2023-03-21] MEDS: oxyCODONE HCL 5 MG TABLET PO PRN (23:20)
[2023-03-22] MEDS: CEFAZOLIN 3 GM in DEXTROSE 5%-WATER - 100 ML IVPB SCH (03:07)
[2023-03-22] MEDS: KETOROLAC TROMETHAMINE 30 MG/1 ML VIAL IVPUSH PRN (03:13)
[2023-03-22] MEDS: oxyCODONE HCL 5 MG TABLET PO PRN ×5 (06:05→22:10)
[2023-03-22] MEDS: ACETAMINOPHEN 325 MG TABLET (FP) PO PRN ×3 (06:05→22:10)
[2023-03-22 08:25] LABS: ALBUMIN 2.9 g/dl (3.4-5.0); BILIRUBIN,TOTAL 0.6 mg/dl (0.2-1); CALCIUM 9.1 mg/dl (8.5-10); CREATININE 0.8 mg/dl (0.55-1.3); TOT PROT 6.1 g/dl (6.4-8.2)
[2023-03-22] MEDS: PANTOPRAZOLE 40 MG TABLET PO SCH (09:11)
[2023-03-22] MEDS: SENNOSIDES/DOCUSATE COMBO (SENNA PLUS) TABLET (UD) PO SCH ×2 (09:11→21:12)
[2023-03-22] MEDS: NIFEdipine E.R. 90 MG TABLET PO SCH (09:11)
[2023-03-22] MEDS: GABAPENTIN 300 MG CAPSULE PO SCH ×2 (09:11→21:12)
[2023-03-22] MEDS: CELECOXIB 200 MG CAPSULE PO SCH ×2 (09:12→21:12)
[2023-03-22] MEDS: HYDROCHLOROTHIAZIDE 25 MG TABLET (FP) PO SCH (09:12)
[2023-03-22] MEDS: CARVEDILOL 25 MG TABLET (FP) PO SCH ×2 (09:12→21:12)
[2023-03-22 09:15] LABS: HEMOGLOBIN 9.8 GM/dL (11.7-16.9); MCH 24.8 pg (25.7-33.7); MCHC 31.4 g/dl (32.0-35.9); MEAN CELL VOLUME 78.9 fl (80-96); MEAN PLT VOLUME 8.4 fl (7.5-11.1); PLATELET COUNT 216 10^3/uL (134-434); RBC 3.93 M/mm3 (4.00-5.60); RDW 15.3 % (11.9-15.9); WHITE BLOOD COUNT 8.1 K/mm3 (4.0-10.0)
[2023-03-22] MEDS: LACTATED RINGERS SOLUTION 1,000 ML IV SCH (09:29)
[2023-03-22] MEDS: ASPIRIN COATED 81 MG TABLET.EC PO SCH ×2 (09:29→21:12)
[2023-03-23] MEDS: oxyCODONE HCL 5 MG TABLET PO PRN ×2 (06:05→11:14)
[2023-03-23] MEDS: ACETAMINOPHEN 325 MG TABLET (FP) PO PRN (06:06)
[2023-03-23 08:12] LABS: HEMATOCRIT 30.2 % (35.4-49); HEMOGLOBIN 9.7 G/dL (11.7-16.9); MCH 25.9 pg (25.7-33.7); MCHC 32.2 g/dl (32.0-35.9); MEAN CELL VOLUME 80.6 fl (80-96); PLATELET COUNT 217.8 10^3/uL (134-434); RBC 3.75 10^6/uL (4.00-5.60); RDW 16.8 % (11.9-15.9); WHITE BLOOD COUNT 11.3 10^3/uL (4.0-10.8)
[2023-03-23] MEDS: SENNOSIDES/DOCUSATE COMBO (SENNA PLUS) TABLET (UD) PO SCH (09:10)
[2023-03-23] MEDS: NIFEdipine E.R. 90 MG TABLET PO SCH (09:10)
[2023-03-23] MEDS: PANTOPRAZOLE 40 MG TABLET PO SCH (09:10)
[2023-03-23] MEDS: ASPIRIN COATED 81 MG TABLET.EC PO SCH (09:10)
[2023-03-23] MEDS: LACTATED RINGERS SOLUTION 1,000 ML IV SCH (09:10)
[2023-03-23] MEDS: CELECOXIB 200 MG CAPSULE PO SCH (09:10)
[2023-03-23] MEDS: GABAPENTIN 300 MG CAPSULE PO SCH (09:10)
[2023-03-23] MEDS: CARVEDILOL 25 MG TABLET (FP) PO SCH (09:10)
[2023-03-23] MEDS: HYDROCHLOROTHIAZIDE 25 MG TABLET (FP) PO SCH (09:10)
[2023-03-23 09:57] VITALS: BP 103/63; PULSE 78; TEMP 98.3
== END 2023-03-23 14:13 | disposition home or self-care (01) | DRG 468 ==
LOC: FM/S 06:02 → EDSTATUS 08:00 → FM/S 14:06
PROVIDERS: ADMIT Orthopaedic Surgery Orthopaedic Surgery of the Spine; ATTEND Orthopaedic Surgery Orthopaedic Surgery of the Spine
PROC: 0SPB0JZ Removal of Synthetic Substitute from Left Hip Joint, Open Approach (ICD-10-PCS; 2023-03-21)
PROC: 0SRB0JZ Replacement of Left Hip Joint with Synthetic Substitute, Open Approach (ICD-10-PCS; principal; 2023-03-21 09:44)
DX: T84.091A Other mechanical complication of internal left hip prosthesis, initial encounter (principal); Y83.8 Other surgical procedures as the cause of abnormal reaction of the patient, or of later complication, without mention of misadventure at the time of the procedure; I10 Essential (primary) hypertension; E78.5 Hyperlipidemia, unspecified; M16.12 Unilateral primary osteoarthritis, left hip
CPT/HCPCS: 36415; 73502-TC-LT-FY; 80048; 80053; 85027; 87635; 88305-TC; 88311-TC; 94760; 97010-GP; 97116-GP; 97163-GP

== ENCOUNTER 2025-03-30 09:11 | Day surgery (SDC) | payer OTHER ==
[2025-03-30] MEDS ORDERED: BUPIVACAINE LIPOSOME/PF (EXPAREL) 266 MG/20 ML VIAL ONE (10:56)
[2025-03-30] MEDS ORDERED: MIDAZOLAM HCL 2 MG/2 ML SINGLE DOSE VIAL ONE (10:56)
[2025-03-30] MEDS ORDERED: BUPIVACAINE HCL/PF 0.5% (5MG/ML) 10 ML VIAL ONE (10:56)
[2025-03-30 11:01] VITALS: BMI 40.2
[2025-03-30] MEDS ORDERED: TRANEXAMIC ACID 1000 MG/10 ML VIAL ONE ×2 (12:14→12:16)
[2025-03-30] MEDS ORDERED: VANCOMYCIN 1,000 MG VIAL (RESTRICTED TO ID ONLY) ONE ×2 (12:14→14:14)
[2025-03-30] MEDS ORDERED: ROCURONIUM BROMIDE 50 MG/5 ML SYRINGE ONE ×2 (12:20→12:56)
[2025-03-30] MEDS ORDERED: PROPOFOL 20 ML ONE (13:59)
[2025-03-30] MEDS: TRANEXAMIC ACID 1000 MG/10 ML VIAL IVPB ONE (14:00)
[2025-03-30] MEDS: VANCOMYCIN 1,000 MG VIAL (RESTRICTED TO ID ONLY) IVPB ONE (14:12)
[2025-03-30] MEDS ORDERED: SUGAMMADEX SODIUM 200 MG/2 ML VIAL ONE (14:37)
[2025-03-30] MEDS ORDERED: ONDANSETRON 4 MG/2 ML VIAL IVPUSH PRN ×2 (15:15→16:54)
[2025-03-30] MEDS ORDERED: MAG HYDROX/AL HYDROX/SIMETH 30 ML UNIT-DOSE CUP PO PRN (15:15)
[2025-03-30] MEDS ORDERED: HALOPERIDOL LACTATE 5 MG/ML ONE (15:19)
[2025-03-30] MEDS: HALOPERIDOL LACTATE 5 MG/ML IVPUSH ONE (15:20)
[2025-03-30] MEDS ORDERED: ACETAMINOPHEN INJECTION 100 ML ONE (15:23)
[2025-03-30] MEDS: ACETAMINOPHEN 1000 MG/100 ML BAG IVPB ONE ×3 (15:25→21:21)
[2025-03-30] MEDS ORDERED: HYDROmorphone HCL/PF 1 MG/ML VIAL ONE (15:46)
[2025-03-30] MEDS: HYDROmorphone HCl 2 MG/ML VIAL IVPUSH PRN (15:48)
[2025-03-30] MEDS: LACTATED RINGERS SOLUTION 1,000 ML IV SCH (15:56)
[2025-03-30] MEDS ORDERED: oxyCODONE HCL 5 MG TABLET PO PRN ×2 (16:54)
[2025-03-30] MEDS: oxyCODONE HCL 5 MG TABLET PO PRN (18:26)
[2025-03-30] MEDS ORDERED: HYDROmorphone HCl 2 MG/ML VIAL IVPB ONE (20:39)
[2025-03-30] MEDS: CEFAZOLIN SODIUM 3 GM in DEXTROSE 5%-WATER 100 ML IVPB SCH (21:00)
[2025-03-30] MEDS: VANCOMYCIN/WATER FOR INJ (PEG) 1,000 MG/200 ML BAG IVPB ONE (23:57)
[2025-03-31] MEDS: SENNOSIDES/DOCUSATE COMBO (SENNA PLUS) TABLET (UD) PO SCH (08:52)
[2025-03-31] MEDS: CARVEDILOL 25 MG TABLET (FP) PO SCH (08:52)
[2025-03-31] MEDS: ACETAMINOPHEN 325 MG TABLET (FP) PO PRN (09:23)
[2025-03-31] MEDS: HYDROCHLOROTHIAZIDE 25 MG TABLET (FP) PO SCH (09:24)
[2025-03-31] MEDS: NIFEdipine E.R. 90 MG TABLET PO SCH (09:25)
[2025-03-31] MEDS: ASPIRIN COATED 81 MG TABLET.EC PO SCH (09:25)
[2025-03-31] MEDS: MULTIVITAMINS (DAILY MVI) TABLET (FP) PO SCH (09:25)
[2025-03-31] MEDS: PANTOPRAZOLE 40 MG TABLET PO SCH (10:02)
[2025-03-31 10:11] LABS: HEMATOCRIT 37.8 % (40.1-51.0); HEMOGLOBIN 12.2 g/dL (13.7-17.5); MCHC 32.3 g/dl (32.3-36.5); MEAN CELL VOLUME 79.2 fl (79.0-92.2); MEAN PLT VOLUME 9.8 fl (9.4-12.4); PLATELET COUNT 267 x10^3/uL (163-337); RDW 15.6 % (12.2-16.4)
[2025-03-31 10:17] LABS: CALCIUM 9.5 mg/dl (8.5-10.1); CREATININE 0.8 mg/dl (0.6-1.3); POTASSIUM 3.8 mmol/L (3.5-5.1)
[2025-04-01 02:04] VITALS: RESP 18
[2025-04-01 08:03] LABS: HEMATOCRIT 33.9 % (40.1-51.0); HEMOGLOBIN 10.9 g/dL (13.7-17.5); MCHC 32.2 g/dl (32.3-36.5); MEAN CELL VOLUME 78.7 fl (79.0-92.2); MEAN PLT VOLUME 9.7 fl (9.4-12.4); PLATELET COUNT 246 x10^3/uL (163-337); RDW 15.6 % (12.2-16.4)
[2025-04-01 10:18] VITALS: BP 124/68; PULSE 87; TEMP 98.8
[2025-04-01] MEDS: ACETAMINOPHEN 325 MG TABLET (FP) PO SCH (11:05)
== END 2025-04-01 11:28 | disposition home or self-care (01) ==
LOC: FASUSAT 09:11 → FM/S 16:39 → FASUSAT 04-01 11:28
PROVIDERS: ATTEND Orthopaedic Surgery
PROC: 0LS30ZZ Reposition Right Upper Arm Tendon, Open Approach (ICD-10-PCS; 2025-03-30)
PROC: 0RRJ00Z Replacement of Right Shoulder Joint with Reverse Ball and Socket Synthetic Substitute, Open Approach (ICD-10-PCS; principal; 2025-03-30 12:27)
DX: M19.011 Primary osteoarthritis, right shoulder (principal); M75.101 Unspecified rotator cuff tear or rupture of right shoulder, not specified as traumatic; M75.21 Bicipital tendinitis, right shoulder
CPT/HCPCS: 23430; 23472; C1776; 36415; 73030-TC-RT-FY; 80048; 85027; 88304-TC; 88305-TC; 88311-TC; 94760; 97010-GP; 97116-GP; 97162-GP; C1713; C1757; J0666